=== PATIENT | female | born 1995 | race Caucasian/White ===

== ENCOUNTER 2021-07-25 23:33 | Inpatient (IN) | payer OTHER, SELFPAY ==
--- OUTSIDE RECORDS SUMMARY | 2021-07-25 23:34 | XMS_ITS ---
:1995 Author Care Team Providers Name Role Phone VAUGHN ODONNELL MD Primary Care Provider [phone] Allergies Code Code System Name Reaction Severity Status Onset NKDA ? Medications Name Status Start Date Stop Date ? ? cholecalciferol (vitamin D3) 25 mcg (1,000 unit) tablet Complete d ? 12/07/2020 TAKE 1 TABLET BY MOUTH EVERY DAY ketoconazole 2 % topical cream Completed ? 0 12/07/2020 APPLY TOPICALLY TO THE AFFECTED AREA EVERY DAY Active ? Not available Problems Name Status Onset Date Source ? Active 01/06/2021 ? Procedures Date Name Performed by ? 04/15/2013 Procedure on Ganglion Cyst Information n ot available Notes: Left wrist 01/06/2021 US, Obstetric, Nuchal Translucency Renee almodovar [address] [place] [address] ([address]) 03/01/2021 US, Obstetric, 2Nd or 3Rd Trimester Reena swan [address] [place] [address] (Work [address]) 06/22/2021 US, Obstetric, Follow-up [place] [address] [place] [address] (Work [address]) 07/21/2021 US, Obstetric, Biophysical Profile Renee almodovar [address]
--- OUTSIDE RECORDS SUMMARY | 2021-07-25 23:34 | XMS_ITS | Encounter Summary ---
:1995 Author Care Team Providers Name Role Phone Ebonie Rogers MD Primary Care Provider [phone] Reason for Visit OB visit OB [id number] EDC 07/21/2021 LMP 10/14/2020 Assessment and Plan Assessment Note Patient is _36__weeks . Dis cussed plan. 1. Routine care Discussion Note: None recorded.Patient educational handouts: No information available. Plan of Care Reminders Provider Appointments Nst Nst, , EQ UIP 07/26/2021 11:30AM ? U/S OB > 14 Ultra soundrn WKS 07/26/2021 Schedule, TECH 11:00AM ? Ob Routine Mar Flores CNM 07/26/2021 12:00PM Lab None ? ? recorded. Referral None ? ? recorded. Procedures None ? ? recorded. Surgeries None ? ? recorded. Imaging None ? ? recorded. Medications Name Start Date ? ? ? Medications Administered None recorded. Vitals Height Weight BMI Blood Pressure 5 ft 7 in 203
--- OUTSIDE RECORDS SUMMARY | 2021-07-25 23:34 | XMS_ITS | Encounter Summary ---
:1995 Author Care Team Providers Name Role Phone Ebonie Rogers MD Primary Care Provider [phone] Reason for Visit OB visit 34w4d Assessment and Plan 1. Routine care Discussion Note: None recorded.Patient [...] BMI Blood Pressure 5 ft 7 in 200 lbs 31.3 kg/m2 135/82 mm[Hg] Results Lab Results None recorded. Allergies
--- OUTSIDE RECORDS SUMMARY | 2021-07-25 23:34 | XMS_ITS | Encounter Summary ---
:1995 Author Care Team Providers Name Role Phone Ebonie Rogers MD Primary Care Provider [phone] Reason for Visit OB visit OB [id number] EDC 07/21/2021 LMP 10/14/2020 Assessment and Plan Assessment Note Patient is __40_weeks . Dis cussed plan. 1. Routine care [...] BMI Blood Pressure 5 ft 7 in 204 l
--- OUTSIDE RECORDS SUMMARY | 2021-07-25 23:34 | XMS_ITS | Encounter Summary ---
:1995 Author Care Team Providers Name Role Phone Ebonie Rogers MD Primary Care Provider [phone] Reason for Visit None recorded. Assessment and Plan 1. COVID-19 ? US, obstetric, follow-up Discussion Note: None recorded.Patient educational handouts: No information available. Plan of Care Reminders Provider Appointments Nst Nst, , EQ UIP 07/26/2021 11:30AM ? U/S OB > 14 Ultra soundrn WKS 07/26/2021 Schedule, TECH 11:00AM ? Ob Routine Mar Flores CNM 07/26/2021 12:00PM Lab None ? ? recorded. Referral None ? ? recorded. Procedures None ? ? recorded. Surgeries None ? ? recorded. Imaging US, [facility], Follow-up 06/22/2021 Medications Name Start Date ? ? ? Medications Administered None recorded. Vitals None recorded. Results Lab Results None recorded. Allergies Code Code System Name
--- OUTSIDE RECORDS SUMMARY | 2021-07-25 23:34 | XMS_ITS | Encounter Summary ---
:1995 Author Care Team Providers Name Role Phone Ebonie Rogers MD Primary Care Provider [phone] Reason for Visit None recorded. Assessment and Plan 1. Post-term of 40 to 42 weeks ? US, obstetric, biophysical profile Discussion Note: None recorded.Patient educational handouts: No information available. Plan of Care Reminders Provider Appointments Nst Nst, , EQ UIP 07/26/2021 11:30AM ? U/S OB > 14 Ultra soundrn WKS 07/26/2021 Schedule, TECH 11:00AM ? Ob Routine Mar Flores, 07/26/2021 CNM 12:00PM Lab None recorded. ? ? Referral None recorded. ? ? Procedures None recorded. ? ? Surgeries None recorded. ? ? Imaging US, Obstetric, [facility] Biophysical Profile 07/21/2021 Medications Name Start Date ? ? ? Medications Administered None recorded. Vitals None recorded. Results Lab Results
--- OUTSIDE RECORDS SUMMARY | 2021-07-25 23:34 | XMS_ITS | Encounter Summary ---
:1995 Author Care Team Providers Name Role Phone Ebonie Rogers MD Primary Care Provider [phone] Reason for Visit OB visit OB [id number] EDC 07/21/2021 LMP 10/14/2020 Assessment and Plan Assessment Note Patient is _37__weeks . Dis cussed plan. 1. Routine care [...]
--- OUTSIDE RECORDS SUMMARY | 2021-07-25 23:34 | XMS_ITS | Encounter Summary ---
:1995 Author Care Team Providers Name Role Phone Ebonie Rogers MD Primary Care Provider [phone] Reason for Visit OB visit Assessment and Plan Assessment Note Patient is ___weeks . Discu ssed plan. 1. Routine care Discussion Note: None [...] BMI Blood Pressure 5 ft 7 in 195 lbs 30.5 kg/m2 138/76 mm[Hg] Results
--- OUTSIDE RECORDS SUMMARY | 2021-07-25 23:34 | XMS_ITS | Encounter Summary ---
:1995 Author Care Team Providers Name Role Phone Ebonie Rogers MD Primary Care Provider [phone] Reason for Visit OB visit 32w4d Assessment and Plan 1. Routine care Discussion [...] BMI Blood Pressure 5 ft 7 in 198 lbs 31 kg/m2 128/80 mm[Hg] Results Lab Results None recorded. Allergi
--- OUTSIDE RECORDS SUMMARY | 2021-07-25 23:34 | XMS_ITS | Encounter Summary ---
:1995 Author Care Team Providers Name Role Phone Ebonie Rogers MD Primary Care Provider [phone] Reason for Visit OB visit OB [id number] EDC 07/21/2021 LMP 10/14/2020 Assessment and Plan 1. Routine care Discussion [...] BMI Blood Pressure 5 ft 7 in 194 lbs 30.4 kg/m2 125/83 mm[Hg] Results Lab Results
--- OUTSIDE RECORDS SUMMARY | 2021-07-25 23:34 | XMS_ITS | Encounter Summary ---
:1995 Author Care Team Providers Name Role Phone Ebonie Rogers MD Primary Care Provider [phone] Reason for Visit OB visit Assessment and [...] ft 7 in 200 lbs 31.3 kg/m2 137/80 mm[Hg] Results
--- OUTSIDE RECORDS SUMMARY | 2021-07-25 23:34 | XMS_ITS | Encounter Summary ---
:1995 Author Care Team Providers Name Role Phone Ebonie Rogers MD Primary Care Provider [phone] Reason for Visit OB visit OB [id number] EDC 07/21/2021 LMP 10/14/2020 Assessment and Plan Assessment Note Patient is _38__weeks . Dis cussed plan. 1. Routine care [...] BMI Blood Pressure 5 ft 7 in 201.
[2021-07-25 23:50] VITALS: BMI 33.7
--- NOTE | 2021-07-25 23:50 | LDADM ---
This patient, Syara Sr, was admitted to Labor/Delivery/Recovery 105 on 07/25/21 at 23:15. Plans for labor, pain management and were discussed with patient. Patient/family oriented to hospital policies and general routines including ID bracelet, bed and alarms, visiting hours, pain management, procedures, bathroom and other care routines, personal items, smoking policy, room service/diet and guest tray routines, security routines, and visiting hours. Patient/Family are encouraged to report perceived risks to care and to ask questions if they do not understand what they are told or what they should do. See OBIX for further documentation.
[2021-07-26] VITALS (164 sets, daily range): BP systolic 97–156; BP diastolic 43–101; PULSE 38–196; RESP 16–20; TEMP 36–37.7; O2SAT 93–100
[2021-07-26 00:34] LABS: Basophils Percent Auto 0.2 % (0.2-1.2); Eosinophils Percent Auto 0.2 % (0-4.4); Hematocrit 35.3 % (37.0-47.0); Hemoglobin 11.3 g/dL (12.0-15.0); Immature Granulocyte Absolute 0.04 K/mm3 (0.00-0.031); Immature Granulocyte Percent A 0.5 % (0-0.5); Lymphocytes Absolute Auto 2.13 K/mm3 (0.9-3.2); Lymphocytes Percent Auto 25.6 % (18.3-44.2); Mean Corpuscular Hemoglobin 26.2 pg (26-34); Mean Corpuscular Volume 81.7 fl (80-100); Mean Platelet Volume 11.2 fl (7.4-10.4); Monocytes Absolute Auto 0.6 K/mm3 (0.1-0.6); Monocytes Percent Auto 6.7 % (2.6-8.5); Neutrophils Absolute Auto 5.6 K/mm3 (1.3-6.7); Neutrophils Percent Auto 66.8 % (45.5-73.1); Platelet Count Result 192 k/mm3 (150-375); Red Blood Count 4.32 M/mm3 (4.2-5.4); Red Cell Distribution Width 14.2 % (11.5-14.5); White Blood Count 8.3 K/mm3 (4.5-10.0)
[2021-07-26 06:30] LABS: Basophils Percent Auto 0.1 % (0.2-1.2); Eosinophils Percent Auto 0.2 % (0-4.4); Hematocrit 34.7 % (37.0-47.0); Hemoglobin 11.4 g/dL (12.0-15.0); Immature Granulocyte Absolute 0.03 K/mm3 (0.00-0.031); Immature Granulocyte Percent A 0.4 % (0-0.5); Lymphocytes Absolute Auto 2.15 K/mm3 (0.9-3.2); Lymphocytes Percent Auto 25.9 % (18.3-44.2); Mean Corpuscular HGB Conc 32.9 g/dl (32-36); Mean Corpuscular Hemoglobin 26.6 pg (26-34); Mean Corpuscular Volume 80.9 fl (80-100); Mean Platelet Volume 11.3 fl (7.4-10.4); Monocytes Absolute Auto 0.5 K/mm3 (0.1-0.6); Monocytes Percent Auto 6.3 % (2.6-8.5); Neutrophils Absolute Auto 5.6 K/mm3 (1.3-6.7); Neutrophils Percent Auto 67.1 % (45.5-73.1); Platelet Count Result 201 k/mm3 (150-375); Red Blood Count 4.29 M/mm3 (4.2-5.4); Red Cell Distribution Width 14.3 % (11.5-14.5); White Blood Count 8.3 K/mm3 (4.5-10.0)
[2021-07-26] MEDS: LACTATED RINGERS 1,000 ML 125 ML IV CONT ×2 (07:28→10:30)
[2021-07-26] MEDS: OXYTOCIN 30 UNITS/NS 500 ML 30 UNITS/500 ML BAG IV CONT (07:28)
--- NOTE | 2021-07-26 07:29 | WPDOBADMIT ---
Obstetrics - Admit Note Admission Note: record reviewed. No pertinent additions to the history and/or any subsequent changes in the physical findings that are not consistent with the expected course of the were found. Pt admitted to for SROM, SVE -/-2 plan pitocin augmentation Additions to the history and/or subsequent changes in the physical findings follow. None.
[2021-07-26] MEDS: fentaNYL CITRATE INJ (*CRX) 100 MCG/2 ML VIAL 50 MCG IV PUSH ×2 (08:36→08:48)
--- NOTE | 2021-07-26 09:05 | WPDANESEPP ---
Anes - Eval Pre Procedure Procedure: Labor epidural Date/Time: 07/26/21 09:05 Surgeon: William Preop Diagnosis: Abd pain with contractions Pre Op Diagnosis: SROM Patient Data Age: 26 Gender: F Height: 1.65 m Weight: 92 kg Last Vital Signs Temp 98.3 F 07/26/21 08:06 Pulse 72 07/26/21 09:00 Resp 18 07/26/21 08:06 BP 134/85 07/26/21 09:00 Allergies Allergy/AdvReac Type Severity Reaction Status Date / Time No Known Allergies Allergy Verified 06/28/21 13:35 Home Medications Medication Instructions Recorded Confirmed Type PNV cmb#95-ferrous fumarate-FA 1 tablet PO DAILY 06/28/21 06/28/21 History [] aspirin 81 mg PO DAILY 06/28/21 06/28/21 History ferrous sulfate [Slow Release Iron] 143 mg PO DAILY 06/28/21 06/28/21 History Laboratory Tests 07/26/21 07/26/21 07/26/21 00:21 00:21 00:21 WBC 8.3 K/mm3 K/mm3 (4.5-10.0) RBC 4.32 M/mm3 M/mm3 (4.2-5.4) Hgb 11.3 g/dL L g/dL (12.0-15.0) Hct 35.3 % L % (37.0-47.0) MCV 81.7 fl fl (80-100) MCH 26.2 pg pg (26-34) MCHC 32.0 g/dl g/dl (32-36) RDW 14.2 % % (11.5-14.5) Plt Count 192 k/mm3 k/mm3 (150-375) MPV 11.2 fl H fl (7.4-10.4) Immature Gran % (Auto) 0.5 % % (0-0.5) Neut % (Auto) 66.8 % % (45.5-73.1) Lymph % (Auto) 25.6 % % (18.3-44.2) Ponce % (Auto) 6.7 % % (2.6-8.5) Eos % (Auto) 0.2 % % (0-4.4) Baso % (Auto) 0.2 % % (0.2-1.2) Lymph # (Auto) 2.13 K/mm3 K/mm3 (0.9-3.2) Ponce # (Auto) 0.6 K/mm3 K/mm3 (0.1-0.6) Eos # (Auto) 0.0 K/mm3 K/mm3 (0-0.3) Baso # (Auto) 0.0 K/mm3 K/mm3 (0.0-0.1) Abs Immat Gran (auto) 0.04 K/mm3 H K/mm3 (0.00-0.031) Absolute Neuts (auto) 5.6 K/mm3 K/mm3 (1.3-6.7) Absolute Nucleated RBC 0.0 K/mm3 K/mm3 (0.0-0.012) Nucleated RBC % 0.0 % % (0.0-0.2) RPR Pending Blood Type A Positive Antibody Screen Negative 07/26/21 06:22 WBC 8.3 K/mm3 K/mm3 (4.5-10.0) RBC 4.29 M/mm3 M/mm3 (4.2-5.4) Hgb 11.4 g/dL L g/dL (12.0-15.0) Hct 34.7 % L % (37.0-47.0) MCV 80.9 fl fl (80-100) MCH 26.6 pg pg (26-34) MCHC 32.9 g/dl g/dl (32-36) RDW 14.3 % % (11.5-14.5) Plt Count 201 k/mm3 k/mm3 (150-375) MPV 11.3 fl H fl (7.4-10.4) Immature Gran % (Auto) 0.4 % % (0-0.5) Neut % (Auto) 67.1 % % (45.5-73.1) Lymph % (Auto) 25.9 % % (18.3-44.2) Ponce % (Auto) 6.3 % % (2.6-8.5) Eos % (Auto) 0.2 % % (0-4.4) Baso % (Auto) 0.1 % L % (0.2-1.2) Lymph # (Auto) 2.15 K/mm3 K/mm3 (0.9-3.2) Ponce # (Auto) 0.5 K/mm3 K/mm3 (0.1-0.6) Eos # (Auto) 0.0 K/mm3 K/mm3 (0-0.3) Baso # (Auto) 0.0 K/mm3 K/mm3 (0.0-0.1) Abs Immat Gran (auto) 0.03 K/mm3 K/mm3 (0.00-0.031) Absolute Neuts (auto) 5.6 K/mm3 K/mm3 (1.3-6.7) Absolute Nucleated RBC 0.0 K/mm3 K/mm3 (0.0-0.012) Nucleated RBC % 0.0 % % (0.0-0.2) RPR Blood Type Antibody Screen : gestational age (edc 07/21/21) HCG: positive Patient hx anesthesia problems: none Family hx anesthesia problems: none Prior surgeries: ganglion cyst removal Results Review: All pre-operative results and documents have been reviewed as part of the pre-operative evaluation. [facility] Family History Family History Other No pertinent family history Social History Social History (Updated 07/25/21 @ 23:55 by Kath Monterroso RN) Smoking status: Never smoker Second hand tobacco smoke exposure: No Alcohol intake: former Substance use: never Substance use type: does not use Living arrangements: with family Gender identity (if verbalized by the patient): Female Sexual Orientation (if Verbalize
[2021-07-26] MEDS: CALCIUM CARBONATE (TUMS) 500 MG (200 MG ELEMENTAL) (12:57)
[2021-07-26 14:15] LABS: Rapid Plasma Reagin Non-Reactive (NonReactive)
[2021-07-26] MEDS: OXYTOCIN 30 UNITS/NS 500 ML 30 UNITS/500 ML BAG 125 UNITS IV CONT (16:08)
--- NOTE | 2021-07-26 16:19 | PM.OBPRVD ---
OB - Delivery Note Procedure Delivery date: 07/26/21 Procedure: vaginal delivery Delivery augmentation: Pitocin Delivery monitor: External FHT and External Uterine Route of delivery: Laceration Description: Perineal - 2nd Degree Delivery repair: vicryl Specimen: No Quantitative Blood Loss (ml): 400 Anesthesia type: Epidural Disposition: Floor Narrative: second degree laceration, tissue swollen, difficult repair, anal skin repaired, rectal capsule and rectum intact , rectal exam done, discussed with pt close follow up and may need revision after swelling resolves, will monitor Baby Date of : 07/26/21 Time of : 15:35 Weeks of gestation at delivery: 40 Infant gender: Male Weight (pounds): 8 Weight (ounces): 0 presentation: vertex position: Left Occiput Anterior Placenta delivery description: Spontaneous Cord Vessel Description: 3 Vessels score one minute: 8 score five minutes: 9
[2021-07-26] MEDS: WITCH HAZEL 40 PADS 1 PAD TOPICAL (18:33)
[2021-07-26] MEDS: IBUPROFEN 600 MG TABLET PO (18:33)
[2021-07-26] MEDS: BENZOCAINE 20% AER SPR (*SP) 56 GM CAN 1 SPRAY TOPICAL (18:33)
[2021-07-27 05:50] LABS: Hematocrit 29.6 % (37.0-47.0); Hemoglobin 9.6 g/dL (12.0-15.0)
[2021-07-27 06:01] VITALS: BP 121/73; PULSE 82; RESP 18; TEMP 36.2; O2SAT 99
[2021-07-27 07:40] VITALS: BP 105/64; PULSE 79; RESP 18; TEMP 36.8; O2SAT 98
[2021-07-27 08:00] VITALS: PULSE 79; RESP 18; O2SAT 98
[2021-07-27] MEDS: POLYSACCHARIDE IRON COMPLEX 150 MG CAPSULE PO ×2 (08:03→16:10)
[2021-07-27] MEDS: IBUPROFEN 600 MG TABLET PO ×2 (08:04→16:10)
[2021-07-27] MEDS: MULTIVIT/MIN/PREN/FOL AC/IRON TABLET 1 TAB PO (08:04)
[2021-07-27] MEDS: DOCUSATE SODIUM 100 MG CAPSULE PO ×2 (08:05→16:10)
--- NOTE | 2021-07-27 08:33 | PM.OBPNVD ---
OB - PN: Subj Subjective Date/time seen: 07/27/21 08:33 Patient comments: no complaints, pain well controlled, incisional pain, tolerating diet and flatus present OB - PN: Obj Data Labs CBC & Chem 7: 07/27/21 05:19 Labs: Laboratory Results - last 24 hr 07/26/21 07/27/21 00:21 05:19 Hgb 9.6 L Hct 29.6 L RPR Non-reactive OB - PN A/P Plan day: 1 Plan: routine care Comments: No problems, routine care Time Spent With Patient Time: Total time spent is greater than 50% in coordination of care (as documented) at patient's floor/unit and/or counseling patient: Exam Const: General: comfortable, no acute distress and alert Resp: Effort & Inspection: normal respiratory effort Auscultation: no crackles, no rales and no rhonchi Cardio: Rate: regular rate Heart sounds: no click, no murmurs and no rubs GI: Inspection: non-distended GI Palp: No Tenderness to palpation present (GI) Auscultation: normal bowel sounds Other: Incision - CDI Extrem: General: normal to inspection, no pedal edema and no calf tenderness
--- NOTE | 2021-07-27 09:32 | PC.NURSE ---
0800 -0805 Introductions were made, then consulted with patient to assess needs related to . Mother led the conversation with her experience feeding her so far and states there has been some pain with the last breastfeed. Parents were encouraged to call for assistance with latching and positioning with the next feeding. Encouraged understanding of the benefits of skin to skin (unwrapping infant and placing vertically on her chest), responsive feeding and how to watch for early feeding signs, frequency of feeding on demand about every 8-12 times in 24 hours (every 2-3 hours), milk production, duration of feeding, signs of adequate intake/output and how to record on the feeding sheet. Reviewed positioning and ear, shoulder, hip alignment, supporting the breast, asymmetrical latch (off-center), and leading with the chin with a big open side gape. Resources used to facilitate learning were used with the visual handouts/mom and baby guide. Mother voiced understanding of responsive feedings, stimulating with skin to skin, hand expressed colostrum, touch, talking to infant to encourage if it has been 2 -3 hours since the start of the last , to call if does not latch or there is discomfort with . Reported to the primary RN.
[2021-07-27 11:35] VITALS: BP 112/67; PULSE 83; RESP 18; TEMP 36.6; O2SAT 98
--- NOTE | 2021-07-27 15:46 | PC.NURSE ---
1530 - Consulted with patient to assess needs related to . Mother led conversation with her experience with feeding baby so far. Mother works well with her with encouragement since it had been 4 hours. Company is present in the room. Reviewed working with infant, breast, nipples and how to protect the nipples with an optimal deep latch, good positioning, and good hand washing. Encouraged understanding the benefits of skin to skin, responding to feeding cues, frequencies of feeding 8-12 times in 24 hours (approximately 2-3 hours), duration of feedings, milk production, intake/output feeding sheet and signs of adequate intake encouraging swallowing at the breast. Reviewed positioning and alignment, supporting breast, off-centered (asymmetrical latch) and leading with the chin with big open wide gape. Infant latched optimally to the right breast in football position. Education given to mother of how to visualize suck/swallow ratios and drinking at the breast. was able to maintain latch without discomfort to mother. Nipple care reviewed with optimal latch and good positioning, comfort, healing with warm, wet washcloth to rinse breast, then leave open to air-dry, colostrum may be left on nipples to dry but have clean hands when touching the nipple/breast as needed. Resources used to facilitate learning were used from the mom and baby guide. Mother voiced understanding of the education shared, calling for assistance if the infant does not latch or if there is discomfort with . Reported to the primary RN.
[2021-07-27 20:00] VITALS: BP 120/73; PULSE 80; RESP 18; TEMP 36.6; O2SAT 98
[2021-07-28 08:26] VITALS: BP 116/76; PULSE 67; RESP 16; TEMP 37.6
[2021-07-28] MEDS: IBUPROFEN 600 MG TABLET PO (09:12)
[2021-07-28] MEDS: HYDROcodone/acetaminophen (*CRX) 5-325 MG TABLET 1 TAB PO (09:12)
[2021-07-28] MEDS: POLYSACCHARIDE IRON COMPLEX 150 MG CAPSULE PO (09:13)
[2021-07-28] MEDS: MULTIVIT/MIN/PREN/FOL AC/IRON TABLET 1 TAB PO (09:13)
[2021-07-28] MEDS: DOCUSATE SODIUM 100 MG CAPSULE PO (09:13)
--- NOTE | 2021-07-28 09:32 | PM.OBPNVD ---
OB - PN: Subj Subjective Date/time seen: 07/28/21 09:32 Patient comments: no complaints baby status: doing well OB - PN: Obj Data Labs CBC & Chem 7: 07/27/21 05:19 OB - PN A/P Plan day: 2 Plan: routine care and discharge home Time Spent With Patient Time: Total time spent is greater than 50% in coordination of care (as documented) at patient's floor/unit and/or counseling patient: Review of Systems Review of Systems: All systems reviewed & are unremarkable except as noted in HPI and below Exam Const: General: cooperative and healthy appearing
--- NOTE | 2021-07-28 09:33 | PM.OBDSVD ---
DS: Admitting Diagnosis Discharge Date 07/28/21 Admitting Diagnosis labor OB - DS: Summary OB Procedures : None OB Procedures Intrapartum: Spontaneous Vag Delivery OB Procedures: : None Time Spent with Patient Time attestation: Total time spent providing and/or coordinating discharge services: Discharge Plan Discharge Attending physician on discharge: Susan Thomas Discharging Clinician: Mar Flores Patient Disposition: Home, Self-Care Activity: pelvic rest Diet: regular Patient Instructions: Antibiotic Form Stand Alone Forms: General Discharge Information Follow-up/Referrals: Mar Flores, VELIAM [Certified Nurse Historical Guide] - 4 Weeks Discharge Medications: Continued Slow Release Iron 47.5 mg iron Tablet Extended Release 143 mg PO DAILY RF: 0 PNV cmb#95-ferrous fumarate-FA [] 28 mg iron- 800 mcg Tablet 1 tablet PO DAILY RF: 0 Discontinued aspirin 81 mg Tablet 81 mg PO DAILY RF: 0 Date of admission: 07/25/21 23:15 Primary Care Provider: KenEbonie Admitting Provider: Susan Thomas Attending physician on admission: Susan Thomas Condition: Stable
[2021-07-28 10:20] VITALS: PULSE 67; RESP 16; O2SAT 98
[2021-07-29 12:25] VITALS: BP 122/68; PULSE 64; RESP 18; TEMP 36.8; O2SAT 98
== END 2021-07-28 12:40 | disposition home or self-care (01) | DRG 807 ==
LOC: ANHLDR 07-26 14:29 → ANHOB2 07-28 09:33 → ANHLDR 07-28 11:44 → ANHOB2 07-28 11:44
PROVIDERS: Advanced Practice Midwife; Admitting Provider Obstetrics & Gynecology; PCP Internal Medicine; Visit Provider Obstetrics & Gynecology
DX: O36.8330 Maternal care for abnormalities of the fetal heart rate or rhythm, third trimester, not applicable or unspecified (principal); Z37.0 Single live birth; Z3A.40 40 weeks gestation of pregnancy; O70.1 Second degree perineal laceration during delivery
CPT/HCPCS: 36415; 84112; 85014; 85018; 85025; 86592; 86850; 86900; 86901; A9270; J2590; J2795; J3010; J7120

== ENCOUNTER 2024-07-25 02:06 | Inpatient (IN) | payer OTHER, SELFPAY ==
[2024-07-25] VITALS (88 sets, daily range): BP systolic 94–140; BP diastolic 49–105; PULSE 68–233; RESP 16–18; TEMP 36.2–37; O2SAT 96–100; BMI 34.4
--- OUTSIDE RECORDS SUMMARY | 2024-07-25 03:39 | XMS_ITS | Data Portability ---
Author Organization [facility] [employer] [place] Address [address] [place] [address] Care Team Providers Care Pastor Name Role Phone VAUGHN ODONNELL Primary Care Provider Assessment Encounter Date Assessment Date Assessment LastModified by Organization Details LastModified Time 06/24/2024 06/24/2024 Patient is _34__weeks . Discussed plan. Not available 06/24/2024 17:37:15 07/08/2024 07/08/2024 Patient is _36__weeks . Discussed plan. Not available 07/08/2024 12:31:02 07/15/2024 07/15/2024 Patient is _37__weeks . Discussed plan. Not available 07/15/2024 13:31:37 07/22/2024 07/22/2024 Patient is 38___weeks . Discussed plan. Not available 07/22/2024 11:48:19 Plan of Treatment Reminders Order Date Submit Date Provider Last Modified By Organization Details Last Modified Time Details Appointments OB ROUTINE 2024 09:45A M Mar Flores CNM Not available Not available Not available Lab streptoco ccus group B, culture, unspecifi ed specimen 2024 025 [facility] (Lab), [address], [place], [address], 07/11/2024 16:07:12 Referral None recorded. Procedures None recorded. Surgeries None recorded. Imaging US, obstetric , follow-up 2024 025 [email or web address] [place], [address], [place], [address], 07/08/2024 19:02:19 Medication Orders None recorded. Patient TargetsNo targets recorded. Patient InstructionsNo instructions recorded. Reason for Referral None Reported. Results Created Date Observation Date Name Description Value Unit Range Abnormal Flag Note LastModifiedBy Organization Detail LastModifiedTime 07/09/1907/08/2024 CULTU RE: GROUP B STREP SCREE N, REFLE X SUSCE PTIBI LITY result report SEE RESULT S BELOW Test: Cultu re: Group B Strep , Refle x Susce ptibi lity ([facility]/ [facility] ) Speci men Sourc e: Vagin a/Rec donna Speci men Type: Vagin al/Re ctal Speci men Date: 2024 1143 Resul t Date: 2024 1503 Resul t Statu s: Final resul t Abnor mal: No Resul ting Lab: [facility] [address] [facility] [address] Tel: CULTU RE ----- ----- ----- --- No Group B strep isola dina at 2 days (zachary ctive broth enhan cemen t) Not Available [facility] (Lab) [address], [place], [address], 07/11/2024 16:07:12 06/12/19 25 06/12/2024 US, obste tric, follo w-up No observ ation record ed. [email or web address] [address], [place], [address], 06/19/2024 17:53:44 06/12/19 25 06/12/2024 US, obste tric, follo w-up No observ ation record ed. pool [place] [address], [place], [address], 06/12/2024 18:39:08 07/09/19 25 07/08/2024 US, obste tric, follo w-up No observ ation record ed. [email or web address] [place] [address], [place], [address], 07/08/2024 12:07:08 07/09/19 25 07/08/2024 US, obste tric, follo w-up No observ ation record ed. [email or web address] [address], [place], [address], 07/09/2024 17:48:43 Result Notes None recorded. Problems Name Problem SNOMED Code Status Onset Date Resolution Date Notes Provider Name and Address Organization Details Recorded Time Pregnanc y 87973441 Completed 202008/01/2021 Eva [facility], [facility] 4 10:52:42 Anemia 018915733 Completed 2021 border ne - slowfe 1 tab daily Sherriebrie farley [facility] 2 12:43:00 COVID-19 [id number] Completed Covid around Christma s. Will start baby aspirin and schedule growth ultrasou nd. Sherriebrie farley [facility], [facility] 2 12:43:00 Pregnanc y 61687421 Active 2023 Eva Ron[facility]illo [facility], [facility] 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 4 17:45:34 Marginal insertio n of umbilica l cord 40381770 Active serial growth Carolyn Tong [facility] 4 22:50:44 Problem Notes None recorded. Procedures Surgical History Date Name Laterality Status Provider Name and Address Organization Details Recorded Time Date of Last Pap Smear completed Eva Ronquillo [facility] 12/25/2023 10:10:20 6 extraction of wisdom tooth completed Eva Ronquillo [facility] 12/25/2023 10:12:08 4 procedure on ganglion cyst completed Chelsea Harrison [facility] 12/08/2020 14:29:23 Imaging Results Imaging Date Name Status LastModified by Organiz ation Details LastModified Time 06/12/2024 US, obstetric, follow-up completed [address], [place], [address], 06/19/2024 17:53:44 06/12/2024 US, obstetric, follow-up completed pool [place] [address], [place], [address], 06/12/2024 18:39:08 07/08/2024 US, obstetric, follow-up completed elvia [place] [address], [place], [address], 07/08/2024 12:07:08 07/08/2024 US, obstetric, follow-up completed [address], [place], [address], 07/09/2024 17:48:43 Procedure Notes None recorded. Medical Equipment None Reported. Allergies No known drug allergies Medications Name Sig Start Date Stop Date Status Note LastModified by Organization Details LastModified Time status covid-19/fl u a-b antigen tst TEST DIRECTED TODAY 12/24 completed Not Available Not Available Not Available Silvadene 1 % topical cream APPLY A 1/16 INCH (1.5 MM) THICK LAYER TO ENTIRE AREA BY TOPICAL ROUTE 2 TIMES PER DAY x 1 week 03/16 completed Not Available Not Available Not Available methylpredn isolone 4 mg tablets in a dose pack USE PER PACKAGE INSTRUCTI ONS 12/24 completed Not Available Not Available Not Available ketoconazol e 2 % topical cream APPLY TOPICALLY TO THE AFFECTED AREA EVERY DAY 12/07 completed Not Available Not Available Not Available active Not Available Not Avai lable Not Available cholecalcif leonardo (vitamin D3) 25 mcg (1,000 unit) tablet TAKE 1 TABLET BY MOUTH EVERY DAY 12/07 completed Not Available Not Available Not Available Vitals Date Recorded Body height Body mass index (BMI) Body weight Systolic blood pressure Diastolic blood pressure Provider Name and Address Organization Details Last Updated DateTime 06/24/2024 170.18 cm 32.4 kg/m2 34803.62 g 124 mm[Hg] 83 mm[Hg] [facility] 5 17:22:03 Date Recorded Body weight Body mass index (BMI) Body height Systolic blood pressure Diastolic blood pressure Provider Name and Address Organization Details Last Updated DateTime 07/08/2024 44981.02 822 g 32.3 kg/m2 170.18 cm 131 mm[Hg] 79 mm[Hg] [facility] 12:27:31 Date Recorded Body weight Body mass index (BMI) Body height Systolic blood pressure Diastolic blood pressure Provider Name and Address Organization Details Last Updated DateTime 07/15/2024 60536.62 059 g 32.4 kg/m2 170.18 cm 126 mm[Hg] 83 mm[Hg] [facility] 5 12:48:13 Date Recorded Body weight Body mass index (BMI) Body height Systolic blood pressure Diastolic blood pressure Provider Name and Address Organization Details Last Updated DateTime 07/22/2024 86673.21 296 g 32.6 kg/m2 170.18 cm 133 mm[Hg] 86 mm[Hg] [facility] 5 11:46:10 Social History Question Answer Notes LastModified by Organizat ion Details LastModified Time Tobacco Smoking Status Never Smoker Orin argueta [facility] 03/16/2022 12:00:47 Do You Have An Advance Directive? No [email or web address] Information not available 12/08/2020 What Is Your Level Of Alcohol Consumption? Occasional [email or web address] Information not available 12/08/2020 How Many Years Have You Consumed Alcohol? 4 Information not available 12/08/2020 Are You Blind Or Do You Have Difficulty Seeing? No [email or web address] Information not available 12/08/2020 What Is Your Level Of Caffeine Consumption? Occasional [email or web address] Information not available 12/08/2020 How Much Tobacco Do You Chew? None [email or web address] Information not available 02/07/2021 In The 14 Days Before Symptom Onset, Have You Had Close Contact With A Laboratory-confir med COVID-19 While That Case Was Ill? No [email or web address] Information not available 12/08/2020 In The 14 Days Before Symptom Onset, Have You Had Close Contact With A Person Who Is Under Investigation For COVID-19 While That Person Was Ill? No Information not available 12/08/2020 Have You Been To An Area Known To Be High Risk For COVID-19? No [email or web address] Information not available 12/08/2020 Are You Deaf Or Do You Have Serious Difficulty Hearing? No [email or web address] Information not available 12/08/2020 What Type Of Diet Are You Following? REGULAR [email or web address] Information not available 12/08/2020 What Is The Highest Grade Or Level Of School You Have Completed Or The Highest Degree You Have Received? 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 No [email or web address] Information not available 12/08/2020 Do You Use Protection During Sex? Usually [email or web address] Information not available 12/08/2020 Do You Use Your Seat Belt Or Car Seat Routinely? Yes [email or web address] Information not available 12/08/2020 Do You Have Smoke And Carbon Monoxide Detectors In Your Home? Yes [email or web address] Information not available 12/08/2020 How Much Tobacco Do You Smoke? No [email or web address] Information not available 12/08/2020 Do You Feel Stressed (tense, Restless, Nervous, Or Anxious, Or Unable To Sleep At Night)? AP1141-3 [email or web address] Information not available 12/08/2020 Do You Use Any Illicit Or Recreational Drugs? No [email or web address] Information not available 12/08/2020 Do You Use Sunscreen Routinely? Yes [email or web address] Information not available 12/08/2020 Have You Used IV Drugs? No [email or web address] Information not available 12/08/2020 Sex: Unknown Functional Status Question Answer Note LastModified by Organizat ion Details LastModified Time Do you have difficulty walking or climbing stairs? No [email or web address] Information not available 03/16/2022 Are you able to walk? YESWOREST [email or web address] Information not available 12/08/2020 Are you able to care for yourself? Yes [email or web address] Information not available 03/16/2022 Do you have difficulty dressing or bathing? No [email or web address] Information not available 03/16/2022 What is your exercise level? Moderate Information not available 12/08/2020 Mental Status None recorded. Family History Relationship Description Onset Age of this Age Resolved Age Notes LastModified by Organization Details LastModified Time Father No current problems or disability [email or web address] Not available 07/11 17:10:59 Mother No current problems or disability Not available 07/11 17:10:59 Medical History Condition Response Allergies (Food, seasonal, environmental ) N Other N Drug/Latex Allergies/Reactions N Breast Cancer N Blood Transfusion N Lung Disease N Dermatologic Disorders N Defects or Inherited Disease N Breast Problem N Gestational Diabetes N Hematologic disorders N Anesthesia Complications N History of STI N Deep Vein Thrombosis N Polycystic ovary syndrome N Anxiety Disorder N Autoimmune disease N Arthritis N Polyps N Infertility N History of abnormal pap N Acid Reflux (GERD) N Cancer N Varicosities N Stroke N Neurologic/Epilepsy N Endometriosis N High Cholesterol N Headaches N Fibromyalgia N Kidney Disease N Heart Problems N Thyroid Problems N Kidney or Bladder Problems N GI Problems N Eating Disorder N Anemia N Art (IVF or FET) N Psychiatric Illness N Ovarian Cancer N Diabetes N Pulmonary (TB, Asthma) N Hepatitis/Liver Disease N No Past Medical History Y Eczema N Urinary Tract Infection N Abuse/Domestic Violence N Asthma N Trauma/Violence N Depression/ depression N Heart Disease N Pre-Eclampsia N Hypertension N Osteoporosis N Thrombophilias N Gynecological History Statement/Question Response Abnormal Pap N Date of Last Mammogram Flow Moderate Date of LMP 10/28/2023 N On BCP's at Conception? N STIs/STDs N Was last menstrual period normal Y HPV Vaccine Y Duration of Flow (days) 4 12 Current Control Method Date of Last Colonoscopy Frequency of Cycle (Q days) 28 Sexually Active? Y Date of DEXA bone scan Age of first menstrual cycle 12 Date of Last Pap Smear 12/25/2023 Sexual Problems? N LMP Approximate N Obstetrics History GPAL:G 2 P 1 0 0 1 Type Value Full Term 1 Living 1 Total 2 Past Encounters Encounter ID Performer Location Encounter Start Date Encounter Closed Date Diagnosis/Indication Diagnosis SNOMED-CT Code Diagnosis ICD10 Code Diagnosis Note [id number] Fabi Stauffer [place] [address] [address] 07/11/2020 17:07:31 07/13/2020 10:47:28 Gynecologic examination 83691186 Z01.419 Take Calcium with Vitamin D 1200mg daily if not receiving in daily diet. It is strongly advised to have an annual flu shot and up can obtain at most pharmacies . If you have not had a TDap shot in the last 10 years you should obtain one as well. Discussed with patient & provided with informatio n regarding Gardisil vaccine to prevent the 4 strains for HPV that cause cervical cancer if under age 26. Encourage safe sexual practices, to use condoms and limit partners if not already in a monogamous relationsh ip. Do monthly self breast exams. Have mammogram yearly or every other year depending on family history. BRCA testing is now available for patients with strong genetic history of female cancer. If interested contact the office. Engage in daily exercise of low impact aerobic exercise 45-60 minutes 4-5 times weekly. Avoid tobacco and illicit drugs as well as using moderation with alcohol intake less than 1-2 8 oz beverages daily. This lifestyle behavior pattern will lead to less health conditions and longer life span. If BMI greater than 25 weight watchers or dietary consult advised. Patient received above instructio ns, and questions have been answered. If you have any questions please call or respond to this email. Patient was made aware of the patient portal and may obtain a paper copy of today's plan if desired. Elevated blood-pressure reading without diagnosis of hypertension 359710267 R03.0 BP elevated. No history of hypertensi on. Pt a little anxious about visit. Will return in 1-2 weeks for bp check. [id number] Fabi Stauffer [place] [address],[place] [address] 12/08/2020 13:50:46 12/08/2020 16:34:14 test positive 496431900 Z32.01 Risk factors addressed: Tobacco Cessation, Safe Sexual Practices, environmen roman, work hazards, travel restrictio ns, seat belt use.Eat a health well balanced diet, avoid alcohol, tobacco, and street drugs.Enga ge in daily low impact exercise, avoid temperatur e extremes, and cat, rodent, and bird feces.Avoi d travel to areas where zika virus is a concern.Of fered cf/sma/nip t. David g all 3. Handouts given and discussed with patient.Ch ildbirth classes recommende d.New OB sheet given.If previous , counseling .Pt verbalizes that she understand s the importance of above instructio ns.All questions were answered.P atient reminded to have annual well woman examinatio n and address [facility] . [id number] [facility] [address],[place] [address] 12/08/2020 13:50:04 12/08/2020 15:52:14 [id number] Paulette Velásquez [place] [address],[place] [address] 01/06/2021 11:22:15 01/06/2021 12:19:31 screening 519805496 Z36.82 [id number] Farideh Mccain MD [place] [address],[place] [address] 01/06/2021 11:26:55 01/06/2021 13:13:02 Routine care 388485728 Z34.91 screening 2437 59117 Z36.82 [id number] Darby Bruner [place] [address],[place] [address] 02/03/2021 13:50:10 02/03/2021 15:23:09 [id number] [facility] [address],[place] [address] 02/07/2021 10:02:50 02/07/2021 11:50:49 Routine care 135981849 Z34.92 [id number] Paulette Velásquez [place] [address],[place] [address] 03/01/2021 11:12:36 03/01/2021 13:24:03 screening for malformation 786957497 Z36.3 [id number] Farideh Mccain MD [place] [address],[place] [address] 03/01/2021 11:13:41 03/01/2021 12:42:21 Routine care 787462307 Z34.91 [id number] Darby Bruner [place] [address],[place] [address] 03/17/2021 09:21:55 03/17/2021 10:37:10 [id number] [facility] [address],[place] [address] 03/30/2021 11:55:18 03/30/2021 13:13:44 Routine care 826494760 Z34.92 [id number] [facility] [address],[place] [address] 05/02/2021 15:04:46 05/02/2021 16:35:38 Routine care 647726811 Z34.92 [id number] Rashad Thomas MD [place] [address],[place] [address] 05/16/2021 11:00:44 05/16/2021 12:22:39 Routine care 583682035 Z34.03 [id number] [facility] [address],[place] [address] 05/30/2021 15:14:34 05/30/2021 16:49:34 Routine care 758582456 Z34.92 [id number] [facility] [address],[place] [address] 06/13/2021 10:47:32 06/13/2021 12:18:45 Routine care 805264033 Z34.92 [id number] Paulette Velásquez [place] [address],[place] [address] 06/22/2021 14:43:25 06/22/2021 15:20:52 COVID-19 964418280 U07.1 O99.893 Z3A.35 [id number] Rashad Thomas MD [place] [address],[place] [address] 06/22/2021 14:44:10 06/22/2021 15:59:55 Routine care 050731475 Z34.03 [id number] Mar Flores [facility] [address],[place] [address] 06/28/2021 11:38:06 06/28/2021 14:41:07 Routine care 681087762 Z34.93 [id number] Mar Flores [facility] [address],[place] [address] 07/05/2021 11:35:19 07/05/2021 12:24:04 Routine care 628803263 Z34.93 [id number] Mar Flores [facility] [address],[place] [address] 07/12/2021 11:35:54 07/12/2021 12:43:29 Routine care 551062149 Z34.93 [id number] Miryam Byrne [place] [address],[place] [address] 07/21/2021 10:11:04 07/21/2021 11:27:34 Post-term of 40 to 42 weeks 3955984834 9101 O48.0 [id number] Mar Flores [facility] [address],[place] [address] 07/21/2021 10:11:58 07/21/2021 11:31:06 Routine care 693877946 Z34.93 [id number] Guadalupe Ro ier [place] [address] [address] 08/01/2021 09:53:38 08/01/2021 13:13:50 support 099126003 Z39.1 Pt here for consult. Pt is 6 days post . Pt is breast feeding, pumping, and supplement ing with expressed breast milk and formula. Pt states she thought breast feeding was going well in the hospital but she was informed at her follow up appt at [facility] that the had lost weight since his discharge and the nurse did not note audible swallowing while the was nursing. Pt states the weighed 8 pounds at and was back to 7 lbs. 10oz. yesterday at the pediatrici an's office. Pt states nursing is going well and she has noticed audible swallowing now that the is less sleepy. Pt states after nursing she is pumping after each feeding and her is bottle feeding the baby expressed breast milk or formula. Pt states her milk seemed to come in yesterday but her breasts are not very full and one nipple has some break down. Pt instructed on feeding cues and nursing the every 1-3 hours and on demand. Pt instructed to always put the to breast first before offering a bottle and instructed to continue pumping after each nursing session for extra breast tissue stimulatio n while the is less aggressive at the breast and she is still trying to encourage more breast milk production . Pt verbalized understand ing. Pt instructed on signs of proper latch and a good feeding at the breast. Pt verbalized understand ing. Pt's nipples assessed and a small amount of skin breakdown with scabbing was noted on her right nipple. Pt states she is applying lanolin and allowing breast milk to air dry on her nipples. Pt instructed to continue both of those things in an effort to heal the nipple and also instructed on breast gel pads. Pt put the to breast and latch on both sides was assessed. has a good, deep latch on both breasts and suck, swallow coordinati on appeared good with audible swallowing noted. Infant did have an initial shallow latch on the right breast and pulled the nipple in with his mouth while beginning to nurse. A deep latch was achieved on that side but the pt was informed nipple break down may have occurred because he pulled the nipple in deeper with his mouth instead of beginning with a deep latch. Pt instructed to wait for a wide open mouth and to pull the down towards her nipple instead of straight on so he will not begin to suckle until the nipple is deeper in his mouth. Pt verbalized understand ing. Pt encouraged . Pt instructed to continue what she has been doing and informed when baby is back to his weight and continues to learn and become more aggressive at the breast, breast feeding will continue to improve. Pt verbalized understand ing and was reassured. Guadalupe Ro ieroger, [employer] [facility] [id number] Mar Flores [facility] [address],[place] [address] 09/01/2021 16:33:49 09/04/2021 15:43:33 care 612213146 Z39.2 [id number] Mar Flores [place] [address] [address] 03/16/2022 12:00:36 03/16/2022 12:33:27 Gynecologic examination 76320369 Z01.419 [id number] Paulette Velásquez [place] [address],[place] [address] 12/25/2023 09:30:59 12/25/2023 10:29:40 [id number] Mar Flores [facility] [address],[place] [address] 12/25/2023 09:31:30 12/25/2023 10:29:30 Amenorrhea 81327337 N91.2 Gynecologi c examination 05604248 Z01.419 [id number] [facility] [address],[place] [address] 01/24/2024 10:01:25 01/24/2024 10:45:35 screening 255297333 Z36.82 Z3A.12 [id number] Mar Flores [facility] [address],[place] [address] 01/24/2024 10:02:07 01/24/2024 11:25:01 screening 392120966 Z36.89 Gestation period, 12 weeks 20778826 Z3A.12 Routine an tenatal care 949887851 Z34.93 [id number] [facility] [address],[place] [address] 02/19/2024 09:41:22 02/19/2024 10:16:58 Gestation period, 16 weeks 55805277 Z3A.16 [id number] [facility] [address],[place] [address] 03/11/2024 15:54:43 03/11/2024 17:15:49 screening for malformation 841403483 Z36.3 Z3A.19 [id number] [facility] [address],[place] [address] 03/11/2024 15:55:19 03/11/2024 17:47:57 Gestation period, 19 weeks 79401986 Z3A.19 [id number] [facility] [address],[place] [address] 04/10/2024 16:33:56 04/13/2024 01:23:31 Marginal insertion of umbilical cord 14116925 O43.122 O43.112 Z3A.23 [id number] [facility] [address] [address] 04/17/2024 15:42:15 04/17/2024 16:38:51 Gestation period, 24 weeks 075623716 Z3A.24 [id number] [facility] [address] [place] [address] 05/15/2024 09:20:56 05/15/2024 10:05:52 Marginal insertion of umbilical cord 00765862 O43.122 O43.112 Z3A.28 [id number] [facility] [address] [place] [address] 05/15/2024 09:21:10 05/15/2024 10:30:02 Gestation period, 28 weeks 34979047 Z3A.28 [id number] Mar Flores [facility] [address],[place] [address] 05/29/2024 10:12:22 05/29/2024 10:45:02 Gestation period, 30 weeks 32064752 Z3A.30 [id number] [facility] [address],[place] [address] 06/12/2024 15:59:50 06/15/2024 06:46:55 Marginal insertion of umbilical cord 88554904 O43.122 Z3A.32 [id number] Mar Flores [facility] [address],[place] [address] 06/12/2024 16:00:08 06/15/2024 00:04:49 Gestation period, 32 weeks 5571795 Z3A.32 [id number] Mar [facility] [address],[place] [address] 06/24/2024 17:03:41 06/24/2024 17:45:49 Gestation period, 34 weeks [id number] Z3A.34 [id number] [facility] [address],[place] [address] 07/08/2024 11:20:22 07/08/2024 12:11:08 Marginal insertion of umbilical cord [id number] O43.122 Z3A.36 [id number] [facility] [address],[place] [address] 07/08/2024 11:20:55 07/08/2024 12:40:20 Gestation period, 36 weeks [id number] Z3A.36 screening [id number] Z36.85 [id number] [facility] [address],[place] [address] 07/15/2024 12:24:44 07/15/2024 13:44:03 Gestation period, 37 weeks [id number] Z3A.37 [id number] Mar [facility] [address],[place] [address] 07/22/2024 11:24:58 07/22/2024 12:30:49 Gestation period, 38 weeks [id number] Z3A.38 Health Concerns Section Related Observation LastModified by Organization Detai ls LastModified Time None Recorded Concern Status LastModified by Organization Details LastModified Time None Recorded Advance Directives Directive N: Payers Encounter Date Sequence Insurance Name Policy Number Policy Guerrero Covered Member ID Guerrero Member ID Guarantor Name 06/24/2024 1 [facility] [id number] Anjel Orin [id number] [place] 07/08/2024 1 [facility] [id number] Anjel Orin [id number] Sayra Orin 07/08/2024 1 [facility] [id number] Anjel [place] [id number] Sayra Orin 07/15/2024 1 [facility] [id number] Anjel [place] [id number] Sayra [place] 07/22/2024 1 [facility] [id number] Anjel [place] [id number] [facility] Orin OBGyn Episode Ob Episode Information Episode Created Date Number of Fetuses Patient Bloodtype Patient rh Status Prepregnancy Weight lbs Domestic Partner Domestic Partner Phone Father Name Stud Driver Status 01/07/20 21 1 A Positive 178 CLOSED Fetus Data First Name Last Name Admitted to NICU Weight (g) Sex Living Outcome Pediatric Complications Fetus ID Race Codes Race Delivery Type 3628.73 6 M true Full Term [id number] Vaginal Delivery Problems Problem Notes Problem Name Start Date End Date Resolution Snomed Code Not e Anemia 05/04/2021 [id number] borderlin e - slowfe 1 tab daily COVID-19 [id number] Covid carmelinau paulino Bowers. Will start baby aspirin and schedule growth ultrasound. Justin Calculation Initial Justin Date Initial Exam Date Initial Exam Provider Initial Ultrasound Date Last Menstrual Period Date Ultra Sound Weeks Gestation 07/21/2021 01/06/2021 12/08/2020 10/14/2020 8 Eighteen To Twenty Week Justin Update Ultra Sound Date Fundal Height At Umbil Quickening Date Ultra Sound Latest Weeks Gestation Final Justin Confirmed By Final Justin Confirmed Date Final Justin Date Ultra Sound Latest Days Gestation 0 [email or web address] 01/06/2021 07/22/19 22 0 Pre- Flowsheet Flowsheet Date 01/06/2021 Ruiz Score Blood Edema Fundus Height Fundus Units Glucose Ketones Leukocytes Nitrite Labor Signs Protein Cervic Dilation Cervic Effacement Cervic Station neg none trace Type Weight in lbs Pre/Post Dialysis Refused Weight 175.897479685880 BP Diastolic BP Location Tested BP Systolic BP Type 81 131 Fetus Heart Rate Present Fetus Movement A No Comments Sayra is a 26yo G1 at 12.0 for care. Her history is noncontributory. US today normal NT. Declines NIPT, PNL today. Encouraged flu shot, has had COVID vaccine. Have [place] vacation planned, discussed risks of zika. Flowsheet Date 02/03/2021 Ruiz Score Blood Edema Fundus Height Fundus Units Glucose Ketones Leukocytes Nitrite Labor Signs Protein Cervic Dilation Cervic Effacement Cervic Station Type Weight in lbs Pre/Post Dialysis Refused BP Diastolic BP Location Tested BP Systolic BP Type Fetus Heart Rate Present Fetus Movement Comments Flowsheet Date 02/07/2021 Ruiz Score Blood Edema Fundus Height Fundus Units Glucose Ketones Leukocytes Nitrite Labor Signs Protein Cervic Dilation Cervic Effacement Cervic Station none Type Weight in lbs Pre/Post Dialysis Refused Weight 178.425037855580 BP Diastolic BP Location Tested BP Systolic BP Type 75 130 Fetus Heart Rate Present A 147 Fetus Movement A Yes Comments Doing well. Declines afp. En couraged flu shot. Flowsheet Date 03/01/2021 Ruiz Score Blood Edema Fundus Height Fundus Units Glucose Ketones Leukocytes Nitrite Labor Signs Protein Cervic Dilation Cervic Effacement Cervic Station Type Weight in lbs Pre/Post Dialysis Refused BP Diastolic BP Location Tested BP Systolic BP Type Fetus Heart Rate Present Fetus Movement Comments Flowsheet Date 03/01/2021 Ruiz Score Blood Edema Fundus Height Fundus Units Glucose Ketones Leukocytes Nitrite Labor Signs Protein Cervic Dilation Cervic Effacement Cervic Station neg trace trace Type Weight in lbs Pre/Post Dialysis Refused Weight 181.351875884864 BP Diastolic BP Location Tested BP Systolic BP Type 76 120 Fetus Heart Rate Present A 130 Fetus Movement A Yes Comments Doing very well except weekl y headaches, do resolve with tylenol. Flu shot done. Anatomy US today complete and wnl. Precautions given. Flowsheet Date 03/17/2021 Ruiz Score Blood Edema Fundus Height Fundus Units Glucose Ketones Leukocytes Nitrite Labor Signs Protein Cervic Dilation Cervic Effacement Cervic Station Type Weight in lbs Pre/Post Dialysis Refused BP Diastolic BP Location Tested BP Systolic BP Type Fetus Heart Rate Present Fetus Movement Comments Flowsheet Date 03/30/2021 Ruiz Score Blood Edema Fundus Height Fundus Units Glucose Ketones Leukocytes Nitrite Labor Signs Protein Cervic Dilation Cervic Effacement Cervic Station none 25 none trace Type Weight in lbs Pre/Post Dialysis Refused Weight 188.907489585252 BP Diastolic BP Location Tested BP Systolic BP Type 81 131 Fetus Heart Rate Present A 139 Fetus Movement A Yes Comments Doing well. Headaches resolv ed. Plan gtt at next visit. Flowsheet Date 05/02/2021 Ruiz Score Blood Edema Fundus Height Fundus Units Glucose Ketones Leukocytes Nitrite Labor Signs Protein Cervic Dilation Cervic Effacement Cervic Station neg none 29 trace Type Weight in lbs Pre/Post Dialysis Refused Weight 194.811500440608 BP Diastolic BP Location Tested BP Systolic BP Type 83 125 Fetus Heart Rate Present A 145 Fetus Movement A Yes Comments Doing well. Occasional braxt on monahan. PTL precautions given. Encouraged tdap. Pt has had flu and covid vaccine. Flowsheet Date 05/16/2021 Ruiz Score Blood Edema Fundus Height Fundus Units Glucose Ketones Leukocytes Nitrite Labor Signs Protein Cervic Dilation Cervic Effacement Cervic Station 30 Type Weight in lbs Pre/Post Dialysis Refused Weight 195.651351123552 BP Diastolic BP Location Tested BP Systolic BP Type 76 R arm 138 sitting Fetus Heart Rate Present A 145 Fetus Movement A Yes Comments No complaints, good mo vement, no contractions, no vaginal bleeding Flowsheet Date 05/30/2021 Ruiz Score Blood Edema Fundus Height Fundus Units Glucose Ketones Leukocytes Nitrite Labor Signs Protein Cervic Dilation Cervic Effacement Cervic Station none 32 none trace Type Weight in lbs Pre/Post Dialysis Refused Weight 198.788670659213 BP Diastolic BP Location Tested BP Systolic BP Type 80 128 Fetus Heart Rate Present A 144 Fetus Movement A Yes Comments Doing well. No contractions. Encouraged tdap. Acid reflux. Will try pepcid. Flowsheet Date 06/13/2021 Ruiz Score Blood Edema Fundus Height Fundus Units Glucose Ketones Leukocytes Nitrite Labor Signs Protein Cervic Dilation Cervic Effacement Cervic Station none 34 none trace Type Weight in lbs Pre/Post Dialysis Refused Weight 200.583958296830 BP Diastolic BP Location Tested BP Systolic BP Type 82 135 Fetus Heart Rate Present A 151 Fetus Movement A Yes Comments Doing well. Pepmary has shana WYATT done. Planning epidural for pain management. Planning to breastfeed and circumcision. Dr Isbell will be the pedi. Planning to get booster. Did have covid in March. Will schedule growth ultrasound and start baby aspirin daily. Flowsheet Date 06/22/2021 Ruiz Score Blood Edema Fundus Height Fundus Units Glucose Ketones Leukocytes Nitrite Labor Signs Protein Cervic Dilation Cervic Effacement Cervic Station Type Weight in lbs Pre/Post Dialysis Refused BP Diastolic BP Location Tested BP Systolic BP Type Fetus Heart Rate Present Fetus Movement Comments Flowsheet Date 06/22/2021 Ruiz Score Blood Edema Fundus Height Fundus Units Glucose Ketones Leukocytes Nitrite Labor Signs Protein Cervic Dilation Cervic Effacement Cervic Station 35 Type Weight in lbs Pre/Post Dialysis Refused Weight 200.822226940845 BP Diastolic BP Location Tested BP Systolic BP Type 80 R arm 137 sitting Fetus Heart Rate Present A 147 Fetus Movement A Yes Comments No complaints, GBS performed today, she declined examination of the cervix. Flowsheet Date 06/28/2021 Ruiz Score Blood Edema Fundus Height Fundus Units Glucose Ketones Leukocytes Nitrite Labor Signs Protein Cervic Dilation Cervic Effacement Cervic Station neg none 36 trace Type Weight in lbs Pre/Post Dialysis Refused Weight 203.38604604801 BP Diastolic BP Location Tested BP Systolic BP Type 82 136 Fetus Heart Rate Present A 148 Fetus Movement A Yes Comments PATIENT IS HAVING SOME CONTR ACTIONS. gbs neg, declines cervical exam precautions reviewed, preadmit this afternoon Flowsheet Date 07/05/2021 Ruiz Score Blood Edema Fundus Height Fundus Units Glucose Ketones Leukocytes Nitrite Labor Signs Protein Cervic Dilation Cervic Effacement Cervic Station neg none trace Type Weight in lbs Pre/Post Dialysis Refused Weight 200.505218004020 BP Diastolic BP Location Tested BP Systolic BP Type 82 131 Fetus Heart Rate Present A 145 Fetus Movement A Yes Comments PATIENT STATES THAT HAVING S OME PAIN, CONTRACTIONS, AND DISCHARGE. precautions reviewed cervix soft/-1 Flowsheet Date 07/12/2021 Ruiz Score Blood Edema Fundus Height Fundus Units Glucose Ketones Leukocytes Nitrite Labor Signs Protein Cervic Dilation Cervic Effacement Cervic Station neg none trace 1cm 50% -2 Type Weight in lbs Pre/Post Dialysis Refused Weight 201.412094908177 BP Diastolic BP Location Tested BP Systolic BP Type 84 133 Fetus Heart Rate Present Fetus Movement A Yes Comments PATIENT IS HAVING SOME CONTR ACTIONS AND DISCHARGE. precautions reviewed, STEVEN next week Flowsheet Date 07/21/2021 Ruiz Score Blood Edema Fundus Height Fundus Units Glucose Ketones Leukocytes Nitrite Labor Signs Protein Cervic Dilation Cervic Effacement Cervic Station Type Weight in lbs Pre/Post Dialysis Refused BP Diastolic BP Location Tested BP Systolic BP Type Fetus Heart Rate Present Fetus Movement Comments Flowsheet Date 07/21/2021 Ruiz Score Blood Edema Fundus Height Fundus Units Glucose Ketones Leukocytes Nitrite Labor Signs Protein Cervic Dilation Cervic Effacement Cervic Station neg trace trace Type Weight in lbs Pre/Post Dialysis Refused Weight 204.893368201194 BP Diastolic BP Location Tested BP Systolic BP Type 79 122 Fetus Heart Rate Present Fetus Movement A Yes Comments PATIENT IS HAVING SOME PAIN, CONTRACTIONS, DISCHARGE AND SWELLING. STEVEN 8 cm, reviewed with dr. carlyn mcginnis nst and steven next week, decline elective IOL, precautions reviewed f/u next week Flowsheet Date 08/01/2021 Ruiz Score Blood Edema Fundus Height Fundus Units Glucose Ketones Leukocytes Nitrite Labor Signs Protein Cervic Dilation Cervic Effacement Cervic Station Type Weight in lbs Pre/Post Dialysis Refused BP Diastolic BP Location Tested BP Systolic BP Type Fetus Heart Rate Present Fetus Movement Comments Menstrual History Last Menstrual Date Menses Monthly On Bcp Conception Prior Menses Frequency Hcg Plus Date Menarche Onset Age 0710/14/2020 Genetic Screening And Infection History Question Response Note Mental Retardation/Autism false Patient's Age Will Be 35 Years Or Older At Estim ated Date of Delivery false Thalassemia (Malay, Turkmen, Mediterranean, Or Background): MCV < 80 false Neural Tube Defect (Meningomyelocele, Spina Bifi da, Or Anencephaly) false Congenital Heart Defect false Down Syndrome false Erasto-Sachs (eg, Jain, Cajun, Arabic-[place]) f alse Greta Disease false Sickle Cell Disease Or Trait () false Hemophilia Or Other Blood Disorders false Muscular Dystrophy false Cystic Fibrosis false Sweet[place]'s Chorea false Intellectual Disability/Autism false If Yes, Was Person Tested For Fragile X? false Other Inherited Genetic Or Chromosomal Disorder false Maternal Metabolic Disorder (eg, Type 1 Diabetes , PKU) false Patient Or Baby's Father Had A Child With Defects Not Listed Above false Recurrent Loss, Or A Stillbirth false Medications (including Suppl ements, Vitamins, Herbs, OTC Drugs), Illicit/Recreational Drugs, Alcohol false If Yes, Agent(s) And Strength/Dosage false Any Other Genetic History false Live With Someone With TB Or Exposed To TB false Patient Or Partner Has History Of Genital Herpes false Rash Or Viral Illness Since Last Menstrual Perio d false History Of STD, Gonorrhea, Chlamydia, HPV, Syphi lis false Other Infection History false History of HIV false History of Hepatitis false Prior GBS-infected child false Hemoglobinopathy Or Carrier false Other Structural Defect false Recent Travel History Outside of Country false Delivery Information Delivery Date Delivery Type Labor Anesthesia Weeks Gestation Incision Type Labor Labor Length Hrs Delivered By Post Complications Tubal Sterilization Discharge Date Comments 2 None Regional-Ep idural 40.5 Mar Lemon CNM SROM Bloody Discharge Information Feeding Method Contraceptive Method Maternal HG B and HCT Levels Ob Episode Information Episode Created Date Number of Fetuses Patient Bloodtype Patient rh Status Prepregnancy Weight lbs Domestic Partner Domestic Partner Phone Father Name Stud Driver Status 01/24/20 24 1 A Positive 184 Anjel [place] OPEN Fetus Data First Name Last Name Admitted to NICU Weight (g) Sex Living Outcome Pediatric Complications Fetus ID Race Codes Race Delivery Type [id number] Problems Problem Notes Problem Name Start Date End Date Resolution Snomed Code Not e Marginal insertion of umbilical cord [id number] serial growth us 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 Justin Calculation Initial Justin Date Initial Exam Date Initial Exam Provider Initial Ultrasound Date Last Menstrual Period Date Ultra Sound Weeks Gestation 08/03/2024 12/25/2023 Mar Sandra 12/25/2023 10/28/2023 8 Eighteen To Twenty Week Justin Update Ultra Sound Date Fundal Height At Umbil Quickening Date Ultra Sound Latest Weeks Gestation Final Justin Confirmed By Final Justin Confirmed Date Final Justin Date Ultra Sound Latest Days Gestation 0 0 Pre-michael Flowsheet Flowsheet Date 01/24/2024 Ruiz Score Blood Edema Fundus Height Fundus Units Glucose Ketones Leukocytes Nitrite Labor Signs Protein Cervic Dilation Cervic Effacement Cervic Station neg none none trace Type Weight in lbs Pre/Post Dialysis Refused Weight 187.167973456540 BP Diastolic BP Location Tested BP Systolic BP Type 79 129 Fetus Heart Rate Present Fetus Movement A No Comments Patient states that is havin g some discharge and nausea. reviewed education and precautions, begin routine care hx uncomplicated vaginal delivery Flowsheet Date 02/19/2024 Ruiz Score Blood Edema Fundus Height Fundus Units Glucose Ketones Leukocytes Nitrite Labor Signs Protein Cervic Dilation Cervic Effacement Cervic Station none Type Weight in lbs Pre/Post Dialysis Refused 191.652669200195 BP Diastolic BP Location Tested BP Systolic BP Type 81 126 Fetus Heart Rate Present A 150 Present Fetus Movement A Yes Comments Patient states that is havin g some nausea. and multani, rec excedrin migraine, +FM, has baseline scheduled. nausea is slowly resolving. f/u 4 weeks Flowsheet Date 03/11/2024 Ruiz Score Blood Edema Fundus Height Fundus Units Glucose Ketones Leukocytes Nitrite Labor Signs Protein Cervic Dilation Cervic Effacement Cervic Station Type Weight in lbs Pre/Post Dialysis Refused BP Diastolic BP Location Tested BP Systolic BP Type Fetus Heart Rate Present Fetus Movement Comments Flowsheet Date 03/11/2024 Ruiz Score Blood Edema Fundus Height Fundus Units Glucose Ketones Leukocytes Nitrite Labor Signs Protein Cervic Dilation Cervic Effacement Cervic Station none Type Weight in lbs Pre/Post Dialysis Refused 192.215179763629 BP Diastolic BP Location Tested BP Systolic BP Type 79 135 Fetus Heart Rate Present Fetus Movement A Yes Comments discussed circumvallate plac enta and Marginal cord insertion plan q 4 week growth, doing well efw 81%, education and precautions f/u 4 weeks Flowsheet Date 04/10/2024 Ruiz Score Blood Edema Fundus Height Fundus Units Glucose Ketones Leukocytes Nitrite Labor Signs Protein Cervic Dilation Cervic Effacement Cervic Station Type Weight in lbs Pre/Post Dialysis Refused BP Diastolic BP Location Tested BP Systolic BP Type Fetus Heart Rate Present Fetus Movement Comments Flowsheet Date 04/17/2024 Ruiz Score Blood Edema Fundus Height Fundus Units Glucose Ketones Leukocytes Nitrite Labor Signs Protein Cervic Dilation Cervic Effacement Cervic Station none Type Weight in lbs Pre/Post Dialysis Refused 198.998481228965 BP Diastolic BP Location Tested BP Systolic BP Type 70 110 Fetus Heart Rate Present A 146 Present Fetus Movement A Yes Comments doing well +FM [place] next week vacation, travel precautions, education plan gct at next visit f/u 4 weeks Flowsheet Date 05/15/2024 Ruiz Score Blood Edema Fundus Height Fundus Units Glucose Ketones Leukocytes Nitrite Labor Signs Protein Cervic Dilation Cervic Effacement Cervic Station Type Weight in lbs Pre/Post Dialysis Refused BP Diastolic BP Location Tested BP Systolic BP Type Fetus Heart Rate Present Fetus Movement Comments Flowsheet Date 05/15/2024 Ruiz Score Blood Edema Fundus Height Fundus Units Glucose Ketones Leukocytes Nitrite Labor Signs Protein Cervic Dilation Cervic Effacement Cervic Station neg none Type Weight in lbs Pre/Post Dialysis Refused 199.824335599448 BP Diastolic BP Location Tested BP Systolic BP Type 77 117 Fetus Heart Rate Present Fetus Movement A Yes Comments Patient states that is havin g some discharge. gct today, efw 34%, precautions and education, cooking class this weekend, f/u 2 weeks ob and 4 weeks with us Flowsheet Date 05/29/2024 Ruiz Score Blood Edema Fundus Height Fundus Units Glucose Ketones Leukocytes Nitrite Labor Signs Protein Cervic Dilation Cervic Effacement Cervic Station neg none Type Weight in lbs Pre/Post Dialysis Refused 201.415118337343 BP Diastolic BP Location Tested BP Systolic BP Type 75 126 Fetus Heart Rate Present Fetus Movement A Yes Comments Patient is having some pain and discharge. reviewed precautions, education, exercise ball for comfort, call for preadmission next week, +FM, f/u 2 weeks Flowsheet Date 06/12/2024 Ruiz Score Blood Edema Fundus Height Fundus Units Glucose Ketones Leukocytes Nitrite Labor Signs Protein Cervic Dilation Cervic Effacement Cervic Station Type Weight in lbs Pre/Post Dialysis Refused BP Diastolic BP Location Tested BP Systolic BP Type Fetus Heart Rate Present Fetus Movement Comments Flowsheet Date 06/12/2024 Ruiz Score Blood Edema Fundus Height Fundus Units Glucose Ketones Leukocytes Nitrite Labor Signs Protein Cervic Dilation Cervic Effacement Cervic Station neg none Type Weight in lbs Pre/Post Dialysis Refused 204.006323198958 BP Diastolic BP Location Tested BP Systolic BP Type 81 123 Fetus Heart Rate Present Fetus Movement A Yes Comments Patient is having some contr actions and discharge. reviewed US, start spinning babies, alfonzo breech, call for preadmit, rx for tdap and rsv given precautions and education f/u 2 weeks Flowsheet Date 06/24/2024 Ruiz Score Blood Edema Fundus Height Fundus Units Glucose Ketones Leukocytes Nitrite Labor Signs Protein Cervic Dilation Cervic Effacement Cervic Station neg trace Type Weight in lbs Pre/Post Dialysis Refused Weight 207.472929695511 BP Diastolic BP Location Tested BP Systolic BP Type 83 124 Fetus Heart Rate Present Fetus Movement A Yes Comments Patient is having discharge and swelling. +FM growth at next visit, plan GBS, education and precautions f/u 2 weeks, transverse lie today Flowsheet Date 07/08/2024 Ruiz Score Blood Edema Fundus Height Fundus Units Glucose Ketones Leukocytes Nitrite Labor Signs Protein Cervic Dilation Cervic Effacement Cervic Station Type Weight in lbs Pre/Post Dialysis Refused BP Diastolic BP Location Tested BP Systolic BP Type Fetus Heart Rate Present Fetus Movement Comments Flowsheet Date 07/08/2024 Ruiz Score Blood Edema Fundus Height Fundus Units Glucose Ketones Leukocytes Nitrite Labor Signs Protein Cervic Dilation Cervic Effacement Cervic Station neg none Type Weight in lbs Pre/Post Dialysis Refused 206.282651196168 BP Diastolic BP Location Tested BP Systolic BP Type 79 131 Fetus Heart Rate Present Fetus Movement A Yes Comments Patient is having contractio ns and discharge. +FM efw 38 % vertex! precautions and education f/u one week gbs collected Flowsheet Date 07/15/2024 Ruiz Score Blood Edema Fundus Height Fundus Units Glucose Ketones Leukocytes Nitrite Labor Signs Protein Cervic Dilation Cervic Effacement Cervic Station neg none Type Weight in lbs Pre/Post Dialysis Refused 207.959604439642 BP Diastolic BP Location Tested BP Systolic BP Type 83 126 Fetus Heart Rate Present Fetus Movement A Yes Comments Patient states that is havin g some contractions and discharge. reviewed precautions and education +FM f/u 1 week Flowsheet Date 07/22/2024 Ruiz Score Blood Edema Fundus Height Fundus Units Glucose Ketones Leukocytes Nitrite Labor Signs Protein Cervic Dilation Cervic Effacement Cervic Station neg none 40% -2 Type Weight in lbs Pre/Post Dialysis Refused 208.830596107085 BP Diastolic BP Location Tested BP Systolic BP Type 86 133 Fetus Heart Rate Present A 138 Fetus Movement A Yes Comments Patient states that is havin g some contractions and discharge. reviewed precautions and education +FM f/u next week Menstrual History Last Menstrual Date Menses Monthly On Bcp Conception Prior Menses Frequency Hcg Plus Date Menarche Onset Age 0710/28/2023 Delivery Information Delivery Date Delivery Type Labor Anesthesia Weeks Gestation Incision Type Labor Labor Length Hrs Delivered By Post Complications Tubal Sterilization Discharge Date Comments Discharge Information Feeding Method Contraceptive Method Maternal HG B and HCT Levels
--- OUTSIDE RECORDS SUMMARY | 2024-07-25 03:39 | XMS_ITS | Clinical Summary ---
Author Organization [facility] Address [address] [place] [address] Phone Care Team Providers Care Cat Breeder Name Role Phone Ebonie Rogers MD Primary Care Provider [phone] Allergies No known active allergies Medications methylPREDNISol one (Medrol) 4 MG Tablet Therapy PackIndications :Insect bite of left ankle, initial encounter Use as per instructions on package. 21 Tablet Active Active Problems No known active problems Social History Tobacco Use Types Packs/Day Years Used Date Smoking Tobacco: Never Smokeless Tobacco: Never Tobacco Cessation:Counseling Given: Not Answered Alcohol Use Standard Drinks/Week Comments Yes 0 (1 standard drink = 0.6 oz pur e alcohol) Comments Unknown Sex and Gender Information Value Date Recorded Sex Assigned at Not on file Legal Sex Female 1:16 PM CDT Gender Identity Not on file Sexual Orientation Not on file Last Filed Vital Signs Vital Sign Reading Time Taken Comments Blood Pressure 146/92 12/12/2022 10:47 AM CDT Pulse 44 12/12/2022 10:47 AM CDT Temperature 36.2 C (97.2 F) 12/12/2022 10:47 AM CDT Respiratory Rate 14 12/12/2022 10:47 AM CDT Oxygen Saturation 98% 12/12/2022 10:47 AM CDT Inhaled Oxygen Concentration - - Weight - - Height - - Body Mass Index - - Plan of Treatment Health Maintenance Due Date Last Done Comments Hepatitis C Virus (HCV) Screening 1996 Hepatitis B Immunization (1 of 3 - 19+ 3-dose series) 12/31/2014 Pap Smear 12/31/2016 Influenza Immunization (#1) 12/15/202301/14, 02/08/2021 SARS-COV-2 Immunization ( season) 2023 02/10/2022, 09/03/2020, 08/13/2020 Respiratory Syncytial Virus (RSV) Immunization (Adult) (1 - 1-dose 75+ series) 12/31/2070 DTaP/Tdap/Td Immunization Discontinued 05/31/2021 TdaP Immunization Completed 05/31/2021 Meningococcal Immunization (ACWY) Aged Out No longer eligible based on patient's age to complete this topic Pneumococcal Immunization Combined Aged Out No longer eligible based on patient's age to complete this topic Rotavirus Immunization Aged Out No lo nger eligible based on patient's age to complete this topic Insurance [facility] * Guarantor: [facility] Account Type Relation to Patient Date of Phone Billing Address Institutional Other [address] [place] [address] Care Teams Cat Breeder Relationship Specialty Start Date End Date Ebonie Rogers MD [address] [place] [address] [place] [address] PCP - General Internal Medicine 01/03/22
--- OUTSIDE RECORDS SUMMARY | 2024-07-25 03:39 | XMS_ITS | Encounter Summary ---
Author Organization [facility] Address [address] [place] [address] Phone Care Team Providers Care Financial Systems Director Name Role Phone Ebonie Rogers MD Primary Care Provider [phone] Encounter Details Date Type Department Care Team (Late st Contact Info) Description 01/03/2022 Lab Requisition [facility] [address] [place] [address] Caitlin Johnson, LANGUAGE ASST, EGG TESTER [address] [place] [address] Encounter for pre-employment examination Social History Tobacco Use Types Packs/Day Years Used Date Smoking Tobacco: Never Assessed Comments Unknown Sex and Gender Information Value Date Recorded Sex Assigned at Not on file Legal Sex Female 1:16 PM CDT Gender Identity Not on file Sexual Orientation Not on file COVID-19 Exposure Response Date Recorded In the last 10 days, have yo u been in contact with someone who was confirmed or suspected to have Coronavirus/COVID-19? Unable to assess 01/03/2022 1:19 PM CDT documented as of this encounter Plan of Treatment Not on file documented as of this encounter Procedures Procedure Name Priority Date/Time Associated Diagnosis Comments QUANTIFERON-TB GOLD PLUS Routine 01/03/2022 10:30 AM CDT Encounter for pre-employment examination documented in this encounter Results * QUANTIFERON-TB GOLD PLUS (01/03/2022 10:30 AM CDT) NIL CONTROL 0.01 <8.01 IU/mL 01/05/2022 1:43 PM CDT [facility] TB ANTIGEN 1 0.01 <0.35 IU/mL 01/05/2022 1:43 PM CDT [facility] TB ANTIGEN 2 0.00 <0.35 IU/mL 01/05/2022 1:43 PM CDT [facility] MITOGEN CONTROL 9.99 >0.49 IU/mL 01/06/20 1:43 PM CDT [facility] INTEPRETATION TB NEGATIVE NEGATIVE, NEGATIVE (TB antigen response less than 25% of internal negative control value) 01/05/2022 1:43 PM CDT [facility] Comment:No immune response t o Mycobacterium tuberculosis antigens was noted. M. tuberculosis infection unlikely. Blood No Phlebotomy Charged / Unknown 01/03/2022 10:30 AM CDT 01/03/2022 1:05 PM CDT Narrative [facility] - 01/05/2022 1:43 PM CDT A POSITIVE QUANTIFERON-TB GOLD PLUS RESULT SHOULD NOT BE THE SOLE OR DEFINITIVE BASIS FOR DETERMINING INFECTION WITH M.TUBERCULOSIS. Diagnosing or excluding tuberculosis disease, and assessing the probability of LTBI, requires a combination of epidemiological, historical, medical and diagnostic findings (e.g., acid fast bacilli (AFB) smear and culture, chest xray) that should be taken into account when interpreting QFT-Plus results. Furthermore, the magnitude of the measured gamma interferon level cannot be correlated to stage or degree of infection, level of immune responsiveness, or likelihood for progression to active disease. The Nil control adjusts for background (e.g., elevated levels of circulating gamma interferon or presence of heterophile antibodies). The Mitogen control serves as an internal positive control and verifies each specimen tested can produce a gamma interferon response. Low mitogen may occur with insufficient lymphocytes, reduced lymphocyte activity due to improper specimen handling, filling/mixing of the mitogen tube, or inability of the patient's lymphocytes to generate gamma interferon. Infection with other Mycobacteria, including M. kansasii, M. szulgai, and M. marinum, may cause false positive results. A negative QuantiFERON-TB Gold Plus result does not preclude the possibility of M. tuberculosis infection or tuberculosis disease: false negative results can be due to incorrect blood sample collection/ improper handling of the specimen, stage of infection (e.g., specimen obtained prior to the development of cellular immune response), co-morbid conditions which affect immune function, or other individual immunological factors. The minimum number of lymphocytes required for a reliable test has not been established and may also be variable. Diagnostic testing for Mycobacterium tuberculosis using Interferon Gamma Release Assays should follow applicable published guidelines, including when testing in populations such as children, women, and HIV-infected or otherwise immunocompromised individuals. https://www.cdc.gov/tb/publications/guidelines/testing.htm us Caitlin Johnson APRN, CNP IMMUNOLOGY ORDERABLES F inal Result [facility] [address] [place] [address], documented in this encounter Visit Diagnoses Diagnosis Encounter for pre-employment examination Health examination of defined subpopulation documented in this encounter Care Teams Financial Systems Director Relationship Specialty Start Date End Date Ebonie Rogers MD [address] [place] [address] PCP - General Internal Medicine 01/03/22 documented as of this encounter
[2024-07-25 04:11] LABS: Basophils Percent Auto 0.2 % (0.2-1.2); Eosinophils Percent Auto 0.1 % (0-4.4); Hematocrit 34.2 % (37.0-47.0); Hemoglobin 11.2 g/dL (12.0-15.0); Immature Granulocyte Absolute 0.05 K/mm3 (0.00-0.031); Immature Granulocyte Percent A 0.5 % (0-0.5); Lymphocytes Absolute Auto 2.11 K/mm3 (0.9-3.2); Lymphocytes Percent Auto 22.1 % (18.3-44.2); Mean Corpuscular HGB Conc 32.7 g/dl (32-36); Mean Corpuscular Hemoglobin 26.5 pg (26-34); Mean Platelet Volume 10.4 fl (7.4-10.4); Monocytes Absolute Auto 0.5 K/mm3 (0.1-0.6); Monocytes Percent Auto 5.2 % (2.6-8.5); Neutrophils Absolute Auto 6.8 K/mm3 (1.3-6.7); Neutrophils Percent Auto 71.9 % (45.5-73.1); Platelet Count Result 197 k/mm3 (150-375); Red Blood Count 4.22 M/mm3 (4.2-5.4); Red Cell Distribution Width 14.3 % (11.5-14.5); White Blood Count 9.5 K/mm3 (4.5-10.0)
[2024-07-25] MEDS: LACTATED RINGERS 1,000 ML 125 ML IV CONT ×2 (04:15→05:00)
--- NOTE | 2024-07-25 04:29 | P.PNAN_ITS ---
Anes - Eval Pre Procedure Procedure: Labor Epidural Date/Time: 07/25/24 04:29 Surgeon: William Preop Diagnosis: Labor Pain Pre Op Diagnosis: Contractions Patient Data Age: 29 Gender: F Height: Weight: Last Vital Signs Pulse 233 H 07/25/24 04:16 BP 133/89 07/25/24 04:16 Pulse Ox 100 07/25/24 04:24 Allergies Allergy/AdvReac Type Severity Reaction Status Date / Time No Known Allergies Allergy Verified 06/28/21 13:35 Home Medications ?Medication ?Instructions ?Recorded ?Confirmed ?Type ferrous sulfate 143 mg PO DAILY 06/28/21 07/08/24 History vit no.95-ferrous 1 tablet PO DAILY 06/28/21 07/08/24 History fumarate 28 mg-folic acid 800 mcg tablet () Laboratory Tests 07/25/24 03:46 WBC 9.5 K/mm3 (4.5-10.0) RBC 4.22 M/mm3 (4.2-5.4) Hgb 11.2 L g/dL (12.0-15.0) Hct 34.2 L % (37.0-47.0) MCV 81.0 fl (80-100) MCH 26.5 pg (26-34) MCHC 32.7 g/dl (32-36) RDW 14.3 % (11.5-14.5) Plt Count 197 k/mm3 (150-375) MPV 10.4 fl (7.4-10.4) Immature Gran % (Auto) 0.5 % (0-0.5) Neut % (Auto) 71.9 % (45.5-73.1) Lymph % (Auto) 22.1 % (18.3-44.2) Will % (Auto) 5.2 % (2.6-8.5) Eos % (Auto) 0.1 % (0-4.4) Baso % (Auto) 0.2 % (0.2-1.2) Lymph # (Auto) 2.11 K/mm3 (0.9-3.2) Will # (Auto) 0.5 K/mm3 (0.1-0.6) Eos # (Auto) 0.0 K/mm3 (0-0.3) Baso # (Auto) 0.0 K/mm3 (0.0-0.1) Abs Immat Gran (auto) 0.05 H K/mm3 (0.00-0.031) Absolute Neuts (auto) 6.8 H K/mm3 (1.3-6.7) Absolute Nucleated RBC 0.000 K/mm3 (0.0-0.012) Nucleated RBC % 0.0 % (0.0-0.2) HIV 1&2 Ab/P24 Ag 4thGn Pending Blood Type Pending Antibody Screen Pending : gestational age (, THA 08/01/24) HCG: positive Patient hx anesthesia problems: none Family hx anesthesia problems: none Results Review: All pre-operative results and documents have been reviewed as part of the pre- operative evaluation. [facility] Family History Family History Other No pertinent family history Social History Social History Smoking status: Never smoker Second hand tobacco smoke exposure: No Alcohol intake: former Substance use: never Substance use type: does not use Living arrangements: with family Gender identity (if verbalized by the patient): Female Sexual Orientation (if Verbalized by the Patient): Straight or Heterosexual Spiritual care concerns: No Agree to blood products: Yes Exam Day of Procedure 07/25/24 04:29 Patient weight: normal Heart: regular rate and rhythm Lungs: normal air movement Airway: Mallampati scale class II Neurological: alert and oriented
[2024-07-25 04:51] LABS: Syphilis IgG/IgM Antibody Negative (Negative)
--- NOTE | 2024-07-25 04:55 | LDADM ---
This patient, Sayra Sr, was admitted to Labor/Delivery/Recovery 104 on 07/25/24 at 02:06. Plans for labor, pain management and were discussed with patient. Patient/family oriented to hospital policies and general routines including ID bracelet, bed and alarms, visiting hours, pain management, procedures, bathroom and other care routines, personal items, smoking policy, room service/diet and guest tray routines, infant security routines, and visiting hours. Patient/Family are encouraged to report perceived risks to care and to ask questions if they do not understand what they are told or what they should do. See [facility]BI[facility] for further documentation.
[2024-07-25 05:04] LABS: HIV 1/2 Ab P24 Ag Result Negative (Negative)
--- NOTE | 2024-07-25 08:26 | P.HPUP_ITS ---
History and Physical Update Update Date/Time: 07/25/24 08:26 Multiparous primipara in labor at term. 8 cm/90%/-1. Artificial rupture membranes was performed. Reassuring status. Expectant management. History and Physical has been reviewed, including an updated exam of the patient . There are NO changes in the patient's condition. Risks, benefits, and alternatives have been discussed and questions answered. Patient agrees to proceed with procedure.
[2024-07-25] MEDS: OXYTOCIN 30 UNITS/NS 500 ML 30 UNITS/500 ML BAG 125 UNITS IV CONT (10:04)
--- NOTE | 2024-07-25 10:12 | PM.OBPRVD ---
OB - Vaginal Delivery Note Procedure Delivery date: 07/25/24 Delivery augmentation: Rupture of Membranes Delivery monitor: External FHT and External Uterine Route of delivery: Episiotomy description: None Laceration Description: Perineal - 2nd Degree Delivery repair: vicryl Quantitative Blood Loss (ml): 250 Anesthesia type: Epidural Narrative: complex vaginal laceration. Had a previous complex vaginal laceration that extended multiple directions. It broke on the same scar line. Perineal laceration extended in a back and forth fashion towards the anus. It was repaired with 2-0 Vicryl.
[2024-07-25] MEDS: FAMOTIDINE 20 MG/2 ML VIAL IV PUSH (12:30)
[2024-07-25] MEDS: WITCH HAZEL 40 PADS 1 PAD TOPICAL (12:30)
[2024-07-25] MEDS: IBUPROFEN 600 MG TABLET PO ×2 (13:42→22:16)
--- NOTE | 2024-07-25 14:05 | OBPPTRN ---
Addendum entered by Kierra Villalpando RN 07/25/24 14:07: Pt was admitted at 1301. Original Note: Patient transferred to post room # 282 via wheelchair. Support person present. Oriented to unit, room, information board, rooming in, admission packet and security measures. Patient verbalizes understanding.
[2024-07-25] MEDS: ACETAMINOPHEN 325 MG TABLET 650 MG PO ×2 (16:11→22:17)
--- NOTE | 2024-07-25 17:27 | PC.NURSE ---
16:30: Introductions were made, then consulted with patient to assess needs related to . Mother led the conversation with her?plans to feed?her and the?experience so far. Mother breastfed her first child and states that she feels confident putting infant to breast. Encouraged understanding of the benefits of skin to skin, stimulating with massage touch, changing positions to encourage wakefulness, how to watch for early feeding cues, responsive feeding, feeding on demand (aiming for 8-12 times in 24 hours, about every 2-3 hours), milk production, building/maintaining a milk supply, duration of feeding, signs of adequate intake/output and how to record on the feeding sheet. Mother works well with her infant. Mother voiced understanding of skin to skin, stimulating with massage touch, responsive feedings, hand expressed colostrum, talking to infant to encourage if it has been 2 -2.5 hours since the start of the last , to call if infant does not latch, or if there is discomfort with . 1715: Called to room to assist with waking for feeding. Educated mother on ways to wake infant for feedings. Infant woke easily and was given to mother, mother was able to independently latch on the right breast in football position. Denies pain.
[2024-07-25] MEDS: DIBUCAINE 1% OINTMENT 30 GM TUBE 1 APPLIC TOPICAL (18:47)
[2024-07-26 05:05] LABS: Hematocrit 27.2 % (37.0-47.0); Hemoglobin 8.6 g/dL (12.0-15.0)
--- NOTE | 2024-07-26 08:34 | P.PNOB_ITS ---
OB - PN: Subj Subjective Date/time seen: 07/26/24 08:34 Patient comments: no complaints, pain well controlled, incisional pain, tolerating diet and flatus present OB - PN: Obj Data Labs 07/26/24 04:37 Labs: Laboratory Results - last 24 hr 07/26/24 04:37 Hgb 8.6 L Hct 27.2 L OB - PN A/P Plan day: 1 Plan: routine care Comments: No problems, routine care Time Spent With Patient Time: Total time spent is greater than 50% in coordination of care (as documented) at patient's floor/unit and/or counseling patient: Exam 2 Const: General: comfortable, no acute distress and alert Resp: Effort & Inspection: normal respiratory effort Auscultation: no crackles, no rales and no rhonchi Cardio: Rate: regular rate Heart sounds: no click, no murmurs and no rubs GI: Inspection: non-distended GI Palp: No Tenderness to palpation present (GI) Auscultation: normal bowel sounds Other: Incision - CDI Extrem: General: normal to inspection, no pedal edema and no calf tenderness
--- NOTE | 2024-07-26 08:35 | P.DS_ITS ---
DS: Admitting Diagnosis Discharge Date 07/26/2024 Admitting Diagnosis Term DS: Discharge Diagnosis Discharge Diagnosis (1) Term delivered: Code(s): O80 - Encounter for full-term uncomplicated delivery Status: Acute OB - DS: Summary OB Procedures : None OB Procedures Intrapartum: Spontaneous Vag Delivery OB Procedures: : None Peripartum Data Laceration Description: Perineal - 2nd Degree Episiotomy description: None Time Spent with Patient Time attestation: Total time spent providing and/or coordinating discharge services: DS: Data Data Completed and Pending Labs on day of discharge: Labs from last 24 hours 07/26/24 04:37 Hgb 8.6 L Hct 27.2 L Discharge Plan Discharge Discharging Clinician: Rashad Thomas Patient Disposition: Home Activity: pelvic rest Diet: regular Patient Instructions: Antibiotic Form Patient Language: Mongolian Stand Alone Forms: General Discharge Information Follow-up/Referrals: Rashad Thomas MD [Physician] - Discharge Medications: Continued ferrous sulfate 47.5 mg iron Tablet Extended Release 143 mg PO DAILY PNV cmb#95-ferrous fumarate-FA [] 28 mg iron- 800 mcg Tablet 1 tablet PO DAILY lansoprazole [Acid Revenue Research Analyst (lansoprazole)] 15 mg capsule,delayed release(DR/EC) 15 mg PO DAILY diphenhydramine HCl [Sleeping] 50 mg capsule 50 mg PO HS magnesium 200 mg tablet 200 mg PO DAILY Date of admission: 07/25/24 02:06 Primary Care Provider: JoaquinEbonie Admitting Provider: Rashad Thomas Attending physician on admission: Mar Flores Condition: Stable
[2024-07-26] MEDS: MULTIVIT/MIN/PREN/FOL AC/IRON TABLET 1 TAB PO (09:11)
[2024-07-26] MEDS: PANTOPRAZOLE 40 MG TABLET PO (09:11)
[2024-07-26] MEDS: IBUPROFEN 600 MG TABLET PO (09:12)
[2024-07-26] MEDS: POLYSACCHARIDE IRON COMPLEX 150 MG CAPSULE PO (09:12)
[2024-07-26] MEDS: DOCUSATE SODIUM 100 MG CAPSULE PO (09:12)
[2024-07-26 09:15] VITALS: BP 121/69; PULSE 66; RESP 20; TEMP 36.1; O2SAT 99
--- NOTE | 2024-07-26 14:00 | PC.NURSE ---
Patient viewed the discharge video Mother & Baby Care, The First Two Weeks . Patient was given the opportunity and encouraged to ask questions. Patient verbalized understanding of information shared and has been given the mother/baby guide for home reference.
--- NOTE | 2024-07-26 15:20 | PC.NURSE ---
Consulted with mother concerning needs and she shared her ability to independently latch infant optimally without pain. Mother is feeding appropriately for growth of and understands stimulating to eat if needed. Infant has had appropriate feedings in the last 24 hours meets the outcomes for weight, output, blood sugar and jaundice at this time. Reinforced understanding of milk production, transition of milk, signs of adequate intake, transition of stool, prevention/relief of engorgement, plugged ducts, mastitis, responsive watching for feeding cues, the different methods of stimulating to breastfeed 1-3 hours after the start of the last feeding, community resources, and when to call a provider using the resource of the feeding sheet along with the mom and baby guide. Mother voiced understanding of the information shared, is confident to continue effectively her infant at home, when to call for assistance, denies any additional assistance or education at this time.
[2024-07-28 10:17] VITALS: BP 128/73; PULSE 75; RESP 18; TEMP 37.1; O2SAT 100
== END 2024-07-26 15:40 | disposition home or self-care (01) | DRG 807 ==
LOC: ANHLDR 04:21 → ANHOB2 07-26 08:36 → ANHLDR 07-28 07:54
PROVIDERS: Admitting Provider Obstetrics & Gynecology; PCP Internal Medicine; Visit Provider Obstetrics & Gynecology
DX: O69.81X0 Labor and delivery complicated by cord around neck, without compression, not applicable or unspecified (principal); Z37.0 Single live birth; Z3A.39 39 weeks gestation of pregnancy; O70.1 Second degree perineal laceration during delivery
CPT/HCPCS: 36415; 85014; 85018; 85025; 86593; 86703; 86850; 86900; 86901; A9270; G0432; J2590; J2795; J7120